=== PATIENT | female | born 1970 | race Caucasian/White ===

== ENCOUNTER 2023-01-31 07:33 | Outpatient (CLI) | payer SELFPAY | END 2023-01-31 07:34 | disposition home or self-care (01) | PROVIDERS: PCP Physician Assistant; Visit Provider Family Medicine | DX: F41.9 Anxiety disorder, unspecified (principal); T14.90XA Injury, unspecified, initial encounter; V49.09XA Driver injured in collision with other motor vehicles in nontraffic accident, initial encounter; Y92.411 Interstate highway as the place of occurrence of the external cause | CPT/HCPCS: A0998 ==